=== PATIENT | female | born 1950 | race Hispanic/Latino ===

== ENCOUNTER 2017-09-12 04:55 | Emergency (ER) | payer OTHER ==
[~2017-09-12] VITALS: Ht 170.2 cm; Wt 85.6 kg
[~2017-09-12 04:55] MED LIST: BENICAR20 MG PO; CIPRO500 MG PO
[2017-09-12 06:16] LABS: BASOPHIL (%) 0.4 % (0-1); EOSINOPHIL (%) 1.8 % (0-5); EOSINOPHIL COUNT 0.1 K/uL (0-0.3); HEMATOCRIT 39.8 % (36.0-46.0); HEMOGLOBIN 13.5 G/DL (11.9-15.5); IMMATURE GRANULOCYTE (%) 0.3 % (0.0-0.7); LYMPHOCYTE (%) 22.3 % (15-42); LYMPHOCYTE COUNT 1.7 K/uL (1.0-2.8); MCH 29.4 PG (29.0-34.0); MCHC 33.9 G/DL (30.0-36.0); MCV 86.7 FL (83-99); MONOCYTE (%) 4.2 % (3-12); MONOCYTE COUNT 0.3 K/uL (0-0.8); NEUTROPHIL COUNT 5.4 K/uL (1.8-6.4); PLATELET COUNT 213 K/uL (156-360); RBC DIS.WIDTH-CV 13.3 % (11.8-14.6); RBC DIS.WIDTH-SD 41.8 % (39-53); RED BLOOD COUNT 4.59 M/uL (3.80-5.20); WHITE BLOOD COUNT 7.7 K/uL (4.1-10.2)
[2017-09-12 06:26] LABS: CHLORIDE 104 mEq/L (99-109); POTASSIUM 3.6 mEq/L (3.7-5.4); SODIUM 139 mEq/L (136-147)
[2017-09-12 06:27] LABS: GLUCOSE 113 mg/dL (70-99)
[2017-09-12 06:31] LABS: CREATININE 0.7 mg/dL (0.6-1.3); GFR ESTIMATE (CALCULATED) > 59 mL/min/
[2017-09-12 06:32] LABS: UREA NITROGEN (BUN) 17 mg/dL (9-23)
[2017-09-12 06:34] LABS: CREATINE KINASE 71 IU/L (1-294)
[2017-09-12] MEDS ORDERED: KEPPRA500 MG PO (07:12)
[2017-09-12 08:50] VITALS: BP 142/75
== END 2017-09-12 08:50 | disposition home or self-care (01) ==
LOC: EME 04:55
PROVIDERS: Emergency Medicine
DX: G40.909 Epilepsy, unspecified, not intractable, without status epilepticus (principal); S60.222A Contusion of left hand, initial encounter; S00.11XA Contusion of right eyelid and periocular area, initial encounter; W06.XXXA Fall from bed, initial encounter; Z87.440 Personal history of urinary (tract) infections; I10 Essential (primary) hypertension
CPT/HCPCS: 70450; 80048; 82550; 85025; 93005; 99281; 99285; J1953; J2405; J7030; J7050